=== PATIENT | male | born 1945 | race Caucasian/White ===

== ENCOUNTER 2018-11-07 21:35 | Inpatient (IN) | payer MEDICARE, BC, OTHER ==
[~2018-11-07] VITALS: Ht 167.6 cm; Wt 82.7 kg
[2018-11-07 22:00] VITALS: BP 182/86
--- NOTE | 2018-11-07 22:00 | NUR ---
Patient arrived to floor via gurney. Walked with SBA to bed. No c/o pain. BP elevated, MD notified. MD to come see patient.
--- NOTE | 2018-11-07 23:21 | NUR ---
in room assessing pt. states okay to use IV placed at and to continue NS @ 100. Will make NPO @ midnight to prep for possible surgery after Dr. Mayers assesses pt.
[2018-11-07 23:50] LABS: INR 1.1 INR; PARTIAL THROMBOPLASTIN TIME 31 SECONDS (22-32)
[2018-11-08] VITALS: BP 193/84
--- NOTE | 2018-11-08 | NUR ---
Patient states he takes lipitor 10 mg and a blood pressure medication @ 100mg at night. He is unable to recall the name of the medication. He states his has access to the medication but she would be asleep at this time.
[2018-11-08] MEDS: normal saline 1000ml 1,000 ML IV SCH ×3 (00:09→20:00)
[2018-11-08] MEDS ORDERED: potassium Cl 40MEQ/NS 500ml 500 ML IV PRN ×2 (00:10)
[2018-11-08] MEDS ORDERED: HYDROcodone/acetaminophen 5mg/325mg tablet PO PRN (00:10)
[2018-11-08] MEDS ORDERED: magnesium Cl slow-release 64mg tablet PO PRN (00:10)
[2018-11-08] MEDS ORDERED: magnesium 4gm in 100ml NS 100 ML IV PRN (00:10)
[2018-11-08] MEDS ORDERED: acetaminophen 325mg tablet PO PRN ×2 (00:10)
[2018-11-08] MEDS ORDERED: potassium Cl 20 mEq SR tablet PO PRN ×2 (00:10)
[2018-11-08] MEDS ORDERED: mag hydrox/Alum hydrox/simeth 30ml oral suspension PO PRN (00:10)
[2018-11-08] MEDS ORDERED: magnesium 2GM in 50ml NS 50 ML IV PRN (00:10)
[2018-11-08] MEDS ORDERED: magnesium hydroxide 30ml (MOM) UD suspension PO PRN (00:10)
[2018-11-08 01:39] VITALS: BP 156/99
[2018-11-08] MEDS ORDERED: ATOR10TA PO (01:54)
[2018-11-08 05:38] LABS: BASOPHILS % (AUTO) 0.2 % (0-1); EOSINOPHILS # (AUTO) 0.1 X10'3 (0-0.9); EOSINOPHILS % (AUTO) 0.7 % (0-6); HEMATOCRIT 34.7 % (42.0-52.0); LYMPHOCYTES # (AUTO) 1.1 X10'3 (1.1-4.8); LYMPHOCYTES % (AUTO) 7.8 % (21-51); MEAN CORPUSCULAR HEMOGLOBIN 31.8 PG (27.0-31.0); MEAN CORPUSCULAR HGB CONC 34.6 g/dL (33.0-36.5); MEAN CORPUSCULAR VOLUME 91.8 FL (78-98); MONOCYTES # (AUTO) 0.9 X10'3 (0-0.9); MONOCYTES % (AUTO) 6.8 % (2-12); NEUTROPHILS # (AUTO) 11.6 X10'3 (1.8-7.7); NEUTROPHILS % (AUTO) 84.5 % (42-75); PLATELET COUNT 213 X10'3 (140-440); RED BLOOD COUNT 3.78 X10'6 (4.70-6.10); RED CELL DISTRIBUTION WIDTH 12.5 % (11.5-14.5); WHITE BLOOD COUNT 13.7 X10'3 (4.5-11.0)
[2018-11-08 06:16] LABS: ALANINE AMINOTRANSFERASE 19 U/L (12-78); ALBUMIN 2.6 G/DL (3.4-5.0); ALBUMIN/GLOBULIN RATIO 0.8 (1.1-1.5); ALKALINE PHOSPHATASE 67 IU/L (46-116); ANION GAP 8 (8-16); ASPARTATE AMINO TRANSFERASE 14 U/L (10-37); BLOOD UREA NITROGEN 10 MG/DL (7-18); BUN/CREATININE RATIO 10.9 (5.4-32.0); CALCIUM 7.9 MG/DL (8.5-10.1); CHLORIDE 98 MMOL/L (99-107); CREATININE 0.92 MG/DL (0.60-1.10); GLUCOSE 104 MG/DL (70-104); POTASSIUM 3.8 MMOL/L (3.5-5.1); SODIUM 131 MMOL/L (135-145); TOTAL CARBON DIOXIDE 24.8 MMOL/L (24-32); TOTAL PROTEIN 5.8 G/DL (6.4-8.2); eGFR 81 ML/MIN
--- NOTE | 2018-11-08 06:50 | NUR ---
Problems reprioritized. Patient report given, questions answered & plan of care reviewed with GRACIELA Ordoñez.
[2018-11-08] MEDS: K and/or MAG REPLACEMENT MC SCH (08:00)
--- NOTE | 2018-11-08 08:32 | NUR ---
PAGER ID: [phone] MESSAGE: [phone] DIDIER MCCORMACK PT. HAVEING 03/02 ABD PAIN WITH NO RELIEF. NPO. MAY WE HAVE AN ORDER FOR IV PAIN MEDICATION PLEASE? MARGARITA OWENS [phone]
[2018-11-08] MEDS ORDERED: morphine 2 MG/ML inj. syringe IV PRN (08:45)
[2018-11-08] MEDS: HYDROcodone/acetaminophen 10/325mg tab PO PRN (08:53)
[2018-11-08] MEDS: metroNIDAZOLE-Flagyl 500mg/NS 100 ML IV SCH ×3 (08:53→23:53)
[2018-11-08 10:30] VITALS: BP 206/85
[2018-11-08] MEDS: ondansetron/PF 4mg/2ml inj IV PRN ×2 (11:53→22:56)
[2018-11-08 12:00] VITALS: BP 176/84
[2018-11-08] MEDS: morphine 4 MG/ML inj SYRINge IV PRN ×2 (12:34→16:36)
[2018-11-08] MEDS: ciprofloxacin lact 400MG/200ML 200 ML IV SCH ×2 (12:55→20:00)
[2018-11-08] MEDS ORDERED: losartan 25mg tablet PO SCH (14:20)
[2018-11-08] MEDS ORDERED: DORZ10DR18 EACHEYE (14:36)
[2018-11-08] MEDS ORDERED: BRIM5DRO16 EACHEYE (14:36)
[2018-11-08] MEDS ORDERED: LOSA100T3 PO (14:36)
--- NOTE | 2018-11-08 14:46 | NUR ---
PAGER ID: [phone] MESSAGE: [id number] DIDIER KSENIA PLEASE ADDRESS MED REC. THANK YOU! MARGARITA OWENS [phone]
[2018-11-08] MEDS ORDERED: brimonidine 0.2% 5 ML ophthalmic drops EACHEYE SCH (16:00)
--- NOTE | 2018-11-08 18:30 | NUR ---
Patient in room [facility]. I have received report from Smita OWENS and had the opportunity to ask questions and assume patient care.
--- NOTE | 2018-11-08 18:45 | NUR ---
Patient in room [facility]. I have received report from GRACIELA Ordoñez and had the opportunity to ask questions and assume patient care with GRACIELA Kohli Addendum: 11/09/18 at 0101 by Teri Ceron RN Amended: Links added.
[2018-11-08 19:00] VITALS: BP 187/99
--- NOTE | 2018-11-08 19:00 | NUR ---
Called Dr Hanson to inform him of Blood pressure 187/99, resumed home medication Larsartin, and I administerd it to patient Addendum: 11/09/18 at 0148 by Seun Stewart RN Amended: Links added.
--- NOTE | 2018-11-08 19:08 | NUR ---
Pt. is in his room comfortably resting. gave report to Seun OWENS and Cielo OWENS
[2018-11-08] MEDS ORDERED: losartan 50mg tablet PO ONE (19:45)
[2018-11-08] MEDS ORDERED: mineral oil 133ml enema RC PRN (19:50)
[2018-11-08] MEDS ORDERED: timolol 0.5% ophthalmic solution 5ml bottle EACHEYE SCH (20:00)
[2018-11-08] MEDS: HYDROmorphone 1 mg/ml syringe IV PRN ×2 (20:01→23:53)
[2018-11-08] MEDS: lactobacillus rhamnosus 10,000 MMU CELLS/CAPSULE PO SCH (20:02)
[2018-11-08] MEDS ORDERED: temazepam 15mg capsule PO PRN (21:00)
[2018-11-08] MEDS: timolol 0.5% ophthalmic solution 5ml bottle EACHEYE SCH (22:55)
[2018-11-08] MEDS: dorzolamide 2% ophthalmic drops 10ml EACHEYE SCH (22:55)
[2018-11-08] MEDS: brimonidine 0.2% 5 ML ophthalmic drops EACHEYE SCH (22:55)
[2018-11-08] MEDS: atorvastatin 10mg tablet PO SCH (22:56)
[2018-11-08 23:00] VITALS: BP 204/104
--- NOTE | 2018-11-08 23:00 | NUR ---
Checked patients blood pressure prior to giving Hydralizine. Gave hydralizine given and blood pressure re checked 10 mins later it was 196/79. Addendum: 11/09/18 at 0156 by Seun Stewart RN Amended: Links added.
[2018-11-08] MEDS: hydrALAZINE 20mg/ml inj. IV PRN (23:52)
[2018-11-09] VITALS (7 sets, daily range): BP systolic 131–259; BP diastolic 78–137
--- NOTE | 2018-11-09 01:39 | NUR ---
Patient states; that he only passed gas this morning. Addendum: 11/09/18 at 0142 by Seun Stewart RN Amended: Links added.
--- NOTE | 2018-11-09 01:50 | NUR ---
Paged Dr Hanson regarding BP of 206/85, Dr irving Hydralizine 0.5ml every 6 hrs PRN for high blood pressure Addendum: 11/09/18 at 0152 by Seun Stewart RN Amended: Links added.
--- NOTE | 2018-11-09 02:38 | NUR ---
Agree with nursing assessment. Addendum: 11/09/18 at 0238 by Teri Ceron RN Amended: Links added.
[2018-11-09 04:44] LABS: BASOPHILS % (AUTO) 0.4 % (0-1); EOSINOPHILS % (AUTO) 0.1 % (0-6); HEMATOCRIT 41.4 % (42.0-52.0); LYMPHOCYTES # (AUTO) 0.7 X10'3 (1.1-4.8); LYMPHOCYTES % (AUTO) 5.2 % (21-51); MEAN CORPUSCULAR HEMOGLOBIN 31.4 PG (27.0-31.0); MEAN CORPUSCULAR HGB CONC 33.8 g/dL (33.0-36.5); MEAN CORPUSCULAR VOLUME 92.9 FL (78-98); MEAN PLATELET VOLUME 7.5 FL (7.4-10.4); MONOCYTES # (AUTO) 0.8 X10'3 (0-0.9); MONOCYTES % (AUTO) 5.6 % (2-12); NEUTROPHILS # (AUTO) 11.9 X10'3 (1.8-7.7); NEUTROPHILS % (AUTO) 88.7 % (42-75); PLATELET COUNT 264 X10'3 (140-440); RED BLOOD COUNT 4.46 X10'6 (4.70-6.10); RED CELL DISTRIBUTION WIDTH 12.7 % (11.5-14.5); WHITE BLOOD COUNT 13.4 X10'3 (4.5-11.0)
[2018-11-09 05:06] LABS: ALANINE AMINOTRANSFERASE 17 U/L (12-78); ALBUMIN 2.4 G/DL (3.4-5.0); ALBUMIN/GLOBULIN RATIO 0.6 (1.1-1.5); ALKALINE PHOSPHATASE 62 IU/L (46-116); ANION GAP 5 (8-16); ASPARTATE AMINO TRANSFERASE 14 U/L (10-37); BILIRUBIN,TOTAL 0.8 MG/DL (0.1-1.0); BLOOD UREA NITROGEN 13 MG/DL (7-18); BUN/CREATININE RATIO 14.8 (5.4-32.0); CALCIUM 8.3 MG/DL (8.5-10.1); CHLORIDE 99 MMOL/L (99-107); CHOL/HDL RATIO 2.3 (0.00-4.99); CHOLESTEROL 128 MG/DL (0-200); CREATININE 0.88 MG/DL (0.60-1.10); GLUCOSE 144 MG/DL (70-104); HDL CHOLESTEROL 55 MG/DL (35-60); LDL CHOLESTEROL 62 MG/DL (50-100); MAGNESIUM 1.7 MG/DL (1.5-2.4); POTASSIUM 4.4 MMOL/L (3.5-5.1); SODIUM 131 MMOL/L (135-145); TOTAL CARBON DIOXIDE 27.5 MMOL/L (24-32); TOTAL PROTEIN 6.2 G/DL (6.4-8.2); TRIGLYCERIDES 48 MG/DL (20-135); eGFR 85 ML/MIN
[2018-11-09] MEDS: ondansetron/PF 4mg/2ml inj IV PRN (05:13)
--- NOTE | 2018-11-09 06:10 | NUR ---
Patient in room [facility]. I have received report from GRACIELA Kohli and had the opportunity to ask questions and assume patient care.
--- NOTE | 2018-11-09 06:37 | NUR ---
Problems reprioritized. Patient report given, questions answered & plan of care reviewed with GRACIELA Fisher. Addendum: 11/09/18 at 0638 by Teri Ceron RN Amended: Links added.
[2018-11-09] MEDS: normal saline 1000ml 1,000 ML IV SCH ×3 (07:35→19:28)
[2018-11-09] MEDS: timolol 0.5% ophthalmic solution 5ml bottle EACHEYE SCH ×2 (07:36→19:45)
[2018-11-09] MEDS: dorzolamide 2% ophthalmic drops 10ml EACHEYE SCH ×2 (07:36→19:44)
[2018-11-09] MEDS: brimonidine 0.2% 5 ML ophthalmic drops EACHEYE SCH ×2 (07:37→19:46)
[2018-11-09] MEDS: metroNIDAZOLE-Flagyl 500mg/NS 100 ML IV SCH ×3 (07:38→23:44)
[2018-11-09] MEDS: enoxaparin 40mg/0.4ml syringe SUBCUT SCH (07:38)
[2018-11-09] MEDS: losartan 50mg tablet PO SCH (07:38)
[2018-11-09] MEDS: lactobacillus rhamnosus 10,000 MMU CELLS/CAPSULE PO SCH ×2 (07:38→19:48)
[2018-11-09] MEDS: K and/or MAG REPLACEMENT MC SCH (07:39)
[2018-11-09] MEDS: hydrALAZINE 20mg/ml inj. IV PRN ×2 (10:07→16:29)
[2018-11-09] MEDS: ciprofloxacin lact 400MG/200ML 200 ML IV SCH ×2 (10:11→19:42)
[2018-11-09] MEDS: proCHLORperazine 10 MG/2 ml inj IV PRN ×2 (10:48→17:27)
--- NOTE | 2018-11-09 18:15 | NUR ---
Problems reprioritized. Patient report given, questions answered & plan of care reviewed with GRACIELA Blair.
--- NOTE | 2018-11-09 18:17 | NUR ---
Patient in room [facility]. I have received report from SHARONA OWENS and had the opportunity to ask questions and assume patient care.
[2018-11-09] MEDS: HYDROmorphone 1 mg/ml syringe IV PRN (19:35)
[2018-11-09] MEDS ORDERED: dorzolamide/timolol (Cosopt) ophthalmic drops 10ml bottle EACHEYE SCH (20:00)
[2018-11-09] MEDS: atorvastatin 10mg tablet PO SCH (21:36)
[2018-11-09] MEDS: hydrALAZINE 20mg/ml inj. IV SCH (21:37)
[2018-11-10] VITALS: BP 184/92
[2018-11-10] MEDS: HYDROmorphone 1 mg/ml syringe IV PRN ×2 (00:25→11:41)
[2018-11-10] MEDS: proCHLORperazine 10 MG/2 ml inj IV PRN ×3 (00:30→22:39)
[2018-11-10 02:00] VITALS: BP 158/81
[2018-11-10] MEDS: hydrALAZINE 20mg/ml inj. IV SCH ×4 (02:14→20:06)
[2018-11-10 04:14] LABS: BASOPHILS % (AUTO) 0.4 % (0-1); EOSINOPHILS % (AUTO) 0.2 % (0-6); HEMATOCRIT 40.2 % (42.0-52.0); HEMOGLOBIN 13.5 g/dl (14.0-17.9); LYMPHOCYTES # (AUTO) 1.1 X10'3 (1.1-4.8); LYMPHOCYTES % (AUTO) 9.6 % (21-51); MEAN CORPUSCULAR HEMOGLOBIN 31.4 PG (27.0-31.0); MEAN CORPUSCULAR HGB CONC 33.7 g/dL (33.0-36.5); MEAN CORPUSCULAR VOLUME 93.2 FL (78-98); MEAN PLATELET VOLUME 7.4 FL (7.4-10.4); MONOCYTES # (AUTO) 0.9 X10'3 (0-0.9); MONOCYTES % (AUTO) 7.6 % (2-12); NEUTROPHILS # (AUTO) 9.4 X10'3 (1.8-7.7); NEUTROPHILS % (AUTO) 82.2 % (42-75); PLATELET COUNT 333 X10'3 (140-440); RED BLOOD COUNT 4.32 X10'6 (4.70-6.10); RED CELL DISTRIBUTION WIDTH 12.7 % (11.5-14.5); WHITE BLOOD COUNT 11.4 X10'3 (4.5-11.0)
[2018-11-10 04:22] LABS: ALANINE AMINOTRANSFERASE 14 U/L (12-78); ALBUMIN 2.2 G/DL (3.4-5.0); ALBUMIN/GLOBULIN RATIO 0.6 (1.1-1.5); ALKALINE PHOSPHATASE 54 IU/L (46-116); ANION GAP 6 (8-16); ASPARTATE AMINO TRANSFERASE 14 U/L (10-37); BILIRUBIN,TOTAL 0.6 MG/DL (0.1-1.0); BLOOD UREA NITROGEN 20 MG/DL (7-18); BUN/CREATININE RATIO 20.4 (5.4-32.0); CALCIUM 8.5 MG/DL (8.5-10.1); CHLORIDE 101 MMOL/L (99-107); CREATININE 0.98 MG/DL (0.60-1.10); GLUCOSE 138 MG/DL (70-104); MAGNESIUM 1.9 MG/DL (1.5-2.4); PHOSPHORUS 2.7 MG/DL (2.3-4.5); POTASSIUM 3.9 MMOL/L (3.5-5.1); SODIUM 134 MMOL/L (135-145); TOTAL CARBON DIOXIDE 26.8 MMOL/L (24-32); TOTAL PROTEIN 5.7 G/DL (6.4-8.2); eGFR 75 ML/MIN
--- NOTE | 2018-11-10 06:15 | NUR ---
Patient in room [facility]. I have received report from Johnnie OWENS and had the opportunity to ask questions and assume patient care.
--- NOTE | 2018-11-10 06:31 | NUR ---
Problems reprioritized. Patient report given, questions answered & plan of care reviewed with HYACINTH OWENS.
[2018-11-10 07:15] VITALS: BP 194/83
[2018-11-10] MEDS: K and/or MAG REPLACEMENT MC SCH (07:49)
[2018-11-10] MEDS: metroNIDAZOLE-Flagyl 500mg/NS 100 ML IV SCH ×2 (07:52→15:27)
[2018-11-10] MEDS: normal saline 1000ml 1,000 ML IV SCH ×2 (07:52→22:42)
[2018-11-10] MEDS: lactobacillus rhamnosus 10,000 MMU CELLS/CAPSULE PO SCH ×2 (07:53→20:05)
[2018-11-10] MEDS: timolol 0.5% ophthalmic solution 5ml bottle EACHEYE SCH ×2 (07:53→20:01)
[2018-11-10] MEDS: losartan 50mg tablet PO SCH (07:53)
[2018-11-10] MEDS: enoxaparin 40mg/0.4ml syringe SUBCUT SCH (07:53)
[2018-11-10] MEDS: dorzolamide 2% ophthalmic drops 10ml EACHEYE SCH ×2 (07:53→20:00)
[2018-11-10] MEDS: brimonidine 0.2% 5 ML ophthalmic drops EACHEYE SCH ×2 (07:54→20:01)
[2018-11-10] MEDS ORDERED: LOSARTAN POTASSIUM PO SCH (08:00)
[2018-11-10] MEDS ORDERED: brimonidine 0.2% 5 ML ophthalmic drops EACHEYE SCH (08:00)
[2018-11-10] MEDS ORDERED: losartan 50mg tablet PO SCH (08:00)
--- NOTE | 2018-11-10 08:11 | NUR ---
Dr. Jerome aware of high BP 194/83. stated to recheck BP in 1 hr. Will continue to monitor.
[2018-11-10] MEDS: ciprofloxacin lact 400MG/200ML 200 ML IV SCH ×2 (09:06→20:00)
[2018-11-10] MEDS: metoprolol tartrate 25mg tablet PO SCH ×2 (09:07→20:05)
[2018-11-10 10:00] VITALS: BP 159/77
[2018-11-10 11:46] VITALS: BP 169/81
[2018-11-10] MEDS: HYDROcodone/acetaminophen 10/325mg tab PO PRN (17:58)
--- NOTE | 2018-11-10 18:28 | NUR ---
Problems reprioritized. Patient report given, questions answered & plan of care reviewed with Johnnie OWENS.
--- NOTE | 2018-11-10 18:29 | NUR ---
Patient in room [facility]. I have received report from HYACINTH OWENS and had the opportunity to ask questions and assume patient care.
[2018-11-10 19:00] VITALS: BP 204/97
[2018-11-10] MEDS: atorvastatin 10mg tablet PO SCH (22:39)
[2018-11-11] VITALS (7 sets, daily range): BP systolic 158–205; BP diastolic 73–95
[2018-11-11] MEDS: metroNIDAZOLE-Flagyl 500mg/NS 100 ML IV SCH ×4 (00:04→23:09)
[2018-11-11] MEDS: HYDROmorphone 1 mg/ml syringe IV PRN ×3 (00:05→18:28)
[2018-11-11] MEDS: ondansetron/PF 4mg/2ml inj IV PRN ×2 (00:11→09:04)
[2018-11-11] MEDS: hydrALAZINE 20mg/ml inj. IV SCH ×4 (02:07→20:17)
--- NOTE | 2018-11-11 03:30 | NUR ---
ET=846/ 79 , DR. MONSON NOTIFIED NEW ORDER RECEIVED.
[2018-11-11] MEDS ORDERED: cloNIDine 0.1 mg tablet PO ONE (04:00)
[2018-11-11 04:33] LABS: BASOPHILS # (AUTO) 0.1 X10'3 (0-0.2); BASOPHILS % (AUTO) 0.9 % (0-1); EOSINOPHILS # (AUTO) 0.1 X10'3 (0-0.9); EOSINOPHILS % (AUTO) 1.3 % (0-6); HEMATOCRIT 39.3 % (42.0-52.0); HEMOGLOBIN 13.2 g/dl (14.0-17.9); LYMPHOCYTES # (AUTO) 1.5 X10'3 (1.1-4.8); LYMPHOCYTES % (AUTO) 17.3 % (21-51); MEAN CORPUSCULAR HEMOGLOBIN 31.5 PG (27.0-31.0); MEAN CORPUSCULAR HGB CONC 33.7 g/dL (33.0-36.5); MEAN CORPUSCULAR VOLUME 93.4 FL (78-98); MEAN PLATELET VOLUME 7.4 FL (7.4-10.4); MONOCYTES % (AUTO) 11.4 % (2-12); NEUTROPHILS # (AUTO) 6.1 X10'3 (1.8-7.7); NEUTROPHILS % (AUTO) 69.1 % (42-75); PLATELET COUNT 370 X10'3 (140-440); RED BLOOD COUNT 4.21 X10'6 (4.70-6.10); RED CELL DISTRIBUTION WIDTH 12.4 % (11.5-14.5); WHITE BLOOD COUNT 8.9 X10'3 (4.5-11.0)
[2018-11-11 04:52] LABS: ALANINE AMINOTRANSFERASE 17 U/L (12-78); ALBUMIN 2.4 G/DL (3.4-5.0); ALBUMIN/GLOBULIN RATIO 0.7 (1.1-1.5); ALKALINE PHOSPHATASE 52 IU/L (46-116); ANION GAP 6 (8-16); ASPARTATE AMINO TRANSFERASE 19 U/L (10-37); BILIRUBIN,TOTAL 0.5 MG/DL (0.1-1.0); BLOOD UREA NITROGEN 18 MG/DL (7-18); CALCIUM 8.6 MG/DL (8.5-10.1); CHLORIDE 101 MMOL/L (99-107); CREATININE 0.82 MG/DL (0.60-1.10); GLUCOSE 126 MG/DL (70-104); MAGNESIUM 1.8 MG/DL (1.5-2.4); PHOSPHORUS 3.2 MG/DL (2.3-4.5); POTASSIUM 3.7 MMOL/L (3.5-5.1); SODIUM 133 MMOL/L (135-145); TOTAL CARBON DIOXIDE 26.3 MMOL/L (24-32); TOTAL PROTEIN 5.8 G/DL (6.4-8.2); eGFR > 90 ML/MIN
--- NOTE | 2018-11-11 05:45 | NUR ---
BP= 186/86, PAGED TO DR. MONSON.
--- NOTE | 2018-11-11 06:51 | NUR ---
Problems reprioritized. Patient report given, questions answered & plan of care reviewed with JOSE ARMANDO OWENS.
[2018-11-11] MEDS: K and/or MAG REPLACEMENT MC SCH (08:00)
[2018-11-11] MEDS ORDERED: metoprolol tartrate 25mg tablet PO ONE (08:20)
[2018-11-11] MEDS: losartan 50mg tablet PO SCH (08:29)
[2018-11-11] MEDS: lactobacillus rhamnosus 10,000 MMU CELLS/CAPSULE PO SCH ×2 (08:29→20:16)
[2018-11-11] MEDS: timolol 0.5% ophthalmic solution 5ml bottle EACHEYE SCH ×2 (08:30→20:09)
[2018-11-11] MEDS: dorzolamide 2% ophthalmic drops 10ml EACHEYE SCH ×2 (08:30→20:14)
[2018-11-11] MEDS: brimonidine 0.2% 5 ML ophthalmic drops EACHEYE SCH ×2 (08:30→20:20)
[2018-11-11] MEDS: enoxaparin 40mg/0.4ml syringe SUBCUT SCH (08:33)
[2018-11-11] MEDS: ciprofloxacin lact 400MG/200ML 200 ML IV SCH ×2 (10:23→20:11)
[2018-11-11] MEDS: normal saline 1000ml 1,000 ML IV SCH (10:24)
[2018-11-11] MEDS: amLODIPine 5mg tablet PO SCH (16:03)
--- NOTE | 2018-11-11 18:10 | NUR ---
Patient in room [facility]. I have received report from Renetta OWENS and had the opportunity to ask questions and assume patient care.
--- NOTE | 2018-11-11 18:13 | NUR ---
Problems reprioritized. Patient report given, questions answered & plan of care reviewed with jahaira stone.
[2018-11-11] MEDS: atorvastatin 10mg tablet PO SCH (20:16)
[2018-11-11] MEDS: metoprolol tartrate 50mg tablet PO SCH (20:17)
[2018-11-12] VITALS (7 sets, daily range): BP systolic 151–191; BP diastolic 72–93
[2018-11-12] MEDS: ondansetron/PF 4mg/2ml inj IV PRN ×2 (01:54→13:50)
[2018-11-12] MEDS: hydrALAZINE 20mg/ml inj. IV SCH ×3 (01:57→14:05)
[2018-11-12] MEDS: HYDROmorphone 1 mg/ml syringe IV PRN (03:25)
[2018-11-12 04:23] LABS: BASOPHILS # (AUTO) 0.1 X10'3 (0-0.2); BASOPHILS % (AUTO) 0.8 % (0-1); EOSINOPHILS # (AUTO) 0.3 X10'3 (0-0.9); HEMATOCRIT 36.1 % (42.0-52.0); HEMOGLOBIN 12.2 g/dl (14.0-17.9); LYMPHOCYTES # (AUTO) 1.1 X10'3 (1.1-4.8); LYMPHOCYTES % (AUTO) 15.5 % (21-51); MEAN CORPUSCULAR HEMOGLOBIN 31.4 PG (27.0-31.0); MEAN CORPUSCULAR HGB CONC 33.9 g/dL (33.0-36.5); MEAN CORPUSCULAR VOLUME 92.7 FL (78-98); MEAN PLATELET VOLUME 7.5 FL (7.4-10.4); MONOCYTES # (AUTO) 0.9 X10'3 (0-0.9); NEUTROPHILS # (AUTO) 4.8 X10'3 (1.8-7.7); NEUTROPHILS % (AUTO) 67.7 % (42-75); PLATELET COUNT 324 X10'3 (140-440); RED BLOOD COUNT 3.89 X10'6 (4.70-6.10); RED CELL DISTRIBUTION WIDTH 12.6 % (11.5-14.5); WHITE BLOOD COUNT 7.1 X10'3 (4.5-11.0)
[2018-11-12 04:35] LABS: ALANINE AMINOTRANSFERASE 30 U/L (12-78); ALBUMIN 2.2 G/DL (3.4-5.0); ALBUMIN/GLOBULIN RATIO 0.7 (1.1-1.5); ALKALINE PHOSPHATASE 57 IU/L (46-116); ANION GAP 8 (8-16); ASPARTATE AMINO TRANSFERASE 45 U/L (10-37); BILIRUBIN,TOTAL 0.6 MG/DL (0.1-1.0); BLOOD UREA NITROGEN 16 MG/DL (7-18); BUN/CREATININE RATIO 21.1 (5.4-32.0); CALCIUM 8.2 MG/DL (8.5-10.1); CHLORIDE 100 MMOL/L (99-107); CREATININE 0.76 MG/DL (0.60-1.10); GLUCOSE 110 MG/DL (70-104); MAGNESIUM 1.7 MG/DL (1.5-2.4); PHOSPHORUS 3.1 MG/DL (2.3-4.5); POTASSIUM 3.6 MMOL/L (3.5-5.1); SODIUM 133 MMOL/L (135-145); TOTAL PROTEIN 5.2 G/DL (6.4-8.2); eGFR > 90 ML/MIN
--- NOTE | 2018-11-12 06:30 | NUR ---
Problems reprioritized. Patient report given, questions answered & plan of care reviewed with Suzy OWENS.
[2018-11-12] MEDS: ciprofloxacin lact 400MG/200ML 200 ML IV SCH (07:32)
[2018-11-12] MEDS: amLODIPine 5mg tablet PO SCH (07:32)
[2018-11-12] MEDS: losartan 50mg tablet PO SCH (07:32)
[2018-11-12] MEDS: metoprolol tartrate 50mg tablet PO SCH ×2 (07:33→20:33)
[2018-11-12] MEDS: lactobacillus rhamnosus 10,000 MMU CELLS/CAPSULE PO SCH ×2 (07:33→20:33)
[2018-11-12] MEDS: brimonidine 0.2% 5 ML ophthalmic drops EACHEYE SCH ×2 (07:34→20:36)
[2018-11-12] MEDS: timolol 0.5% ophthalmic solution 5ml bottle EACHEYE SCH ×2 (07:34→20:36)
[2018-11-12] MEDS: dorzolamide 2% ophthalmic drops 10ml EACHEYE SCH ×2 (07:34→20:36)
[2018-11-12] MEDS: enoxaparin 40mg/0.4ml syringe SUBCUT SCH (07:35)
[2018-11-12] MEDS: K and/or MAG REPLACEMENT MC SCH (08:00)
[2018-11-12] MEDS: metroNIDAZOLE-Flagyl 500mg/NS 100 ML IV SCH ×2 (09:48→17:32)
--- NOTE | 2018-11-12 14:40 | NUR ---
Initial: Pt admit w/ diverticulitis and microperforation receiving IV abx hoping to avoid OR per MD note. Pt advanced to clear liquids w/ 0-25% avg meals. Abdominal pain and distention improving but still present following first BM 11/11 per pt and EMR. Pt seen by RD for written/verbal diverticulitis diet ed w/ RD contact information provided. RD encouraged pt to contact RD if any further questions given new DX and no prior hx GI issues. Ensure clear TIDWM added for additional protein/kcal needs; MD and dietary notified. Will continue to monitor. Rec: 1. advance diet per MD to low-residue 2. ensure clear TIDWM while on clears 3. wt per rx Addendum: 11/12/18 at [address] Amended: Links added. Addendum: 11/12/18 at [address] F/u: Pt advanced to mechanical soft/low-residue diet; ONS change to ensure enlive TID since no longer on clears; dietary notified.
[2018-11-12] MEDS ORDERED: bisacodyl 10mg suppository rectal RC PRN (15:20)
--- NOTE | 2018-11-12 18:30 | NUR ---
Patient in room [facility]. I have received report from Suzy OWENS and had the opportunity to ask questions and assume patient care.
--- NOTE | 2018-11-12 20:00 | NUR ---
Patients PIV to RUE had just infiltrated prior to change shift. All IV medications to be converted to PO.
[2018-11-12] MEDS: atorvastatin 10mg tablet PO SCH (20:33)
[2018-11-12] MEDS: ciprofloxacin 250mg tablet PO SCH (20:34)
[2018-11-12] MEDS: docusate sod 100mg capsule PO SCH (20:34)
[2018-11-12] MEDS: hyDRALAzine 10mg tablet PO SCH (21:00)
[2018-11-12] MEDS: ondansetron 4mg rapidly disintigrating tab PO PRN (21:02)
[2018-11-12] MEDS: metroNIDAZOLE 500mg tablet PO SCH (23:24)
[2018-11-12] MEDS: HYDROmorphone 2mg tablet PO PRN (23:25)
[2018-11-13 01:43] VITALS: BP 168/86
[2018-11-13] MEDS: hyDRALAzine 10mg tablet PO SCH ×2 (01:45→08:00)
[2018-11-13 04:33] LABS: ALANINE AMINOTRANSFERASE 55 U/L (12-78); ALBUMIN 2.5 G/DL (3.4-5.0); ALBUMIN/GLOBULIN RATIO 0.8 (1.1-1.5); ALKALINE PHOSPHATASE 75 IU/L (46-116); ANION GAP 7 (8-16); ASPARTATE AMINO TRANSFERASE 68 U/L (10-37); BASOPHILS # (AUTO) 0.1 X10'3 (0-0.2); BASOPHILS % (AUTO) 0.8 % (0-1); BILIRUBIN,TOTAL 0.6 MG/DL (0.1-1.0); BLOOD UREA NITROGEN 12 MG/DL (7-18); BUN/CREATININE RATIO 15.4 (5.4-32.0); CALCIUM 7.9 MG/DL (8.5-10.1); CHLORIDE 96 MMOL/L (99-107); CREATININE 0.78 MG/DL (0.60-1.10); EOSINOPHILS # (AUTO) 0.3 X10'3 (0-0.9); EOSINOPHILS % (AUTO) 4.5 % (0-6); GLUCOSE 112 MG/DL (70-104); HEMATOCRIT 38.5 % (42.0-52.0); HEMOGLOBIN 13.1 g/dl (14.0-17.9); LYMPHOCYTES # (AUTO) 1.3 X10'3 (1.1-4.8); LYMPHOCYTES % (AUTO) 17.2 % (21-51); MAGNESIUM 1.6 MG/DL (1.5-2.4); MEAN CORPUSCULAR VOLUME 91.2 FL (78-98); MEAN PLATELET VOLUME 7.2 FL (7.4-10.4); MONOCYTES # (AUTO) 0.9 X10'3 (0-0.9); MONOCYTES % (AUTO) 11.8 % (2-12); NEUTROPHILS % (AUTO) 65.7 % (42-75); PHOSPHORUS 3.3 MG/DL (2.3-4.5); PLATELET COUNT 319 X10'3 (140-440); POTASSIUM 3.6 MMOL/L (3.5-5.1); RED BLOOD COUNT 4.22 X10'6 (4.70-6.10); RED CELL DISTRIBUTION WIDTH 12.8 % (11.5-14.5); SODIUM 130 MMOL/L (135-145); TOTAL CARBON DIOXIDE 26.8 MMOL/L (24-32); TOTAL PROTEIN 5.5 G/DL (6.4-8.2); WHITE BLOOD COUNT 7.6 X10'3 (4.5-11.0); eGFR > 90 ML/MIN
--- NOTE | 2018-11-13 06:20 | NUR ---
Problems reprioritized. Patient report given, questions answered & plan of care reviewed with Malissa OWENS.
[2018-11-13 07:00] VITALS: BP 183/87
--- NOTE | 2018-11-13 07:05 | NUR ---
Patient in room [facility]. I have received report from Cornelia OWENS and had the opportunity to ask questions and assume patient care.
[2018-11-13] MEDS: ondansetron 4mg rapidly disintigrating tab PO PRN (08:00)
[2018-11-13] MEDS: K and/or MAG REPLACEMENT MC SCH (08:00)
[2018-11-13] MEDS: HYDROmorphone 2mg tablet PO PRN (08:00)
[2018-11-13] MEDS: ciprofloxacin 250mg tablet PO SCH (08:01)
[2018-11-13] MEDS: lactobacillus rhamnosus 10,000 MMU CELLS/CAPSULE PO SCH (08:01)
[2018-11-13] MEDS: losartan 50mg tablet PO SCH (08:01)
[2018-11-13 08:02] VITALS: BP_SYST 183
[2018-11-13] MEDS: metroNIDAZOLE 500mg tablet PO SCH (08:02)
[2018-11-13] MEDS: metoprolol tartrate 50mg tablet PO SCH (08:02)
[2018-11-13] MEDS: docusate sod 100mg capsule PO SCH (08:02)
[2018-11-13] MEDS: amLODIPine 5mg tablet PO SCH (08:02)
[2018-11-13] MEDS: timolol 0.5% ophthalmic solution 5ml bottle EACHEYE SCH (08:03)
[2018-11-13] MEDS: brimonidine 0.2% 5 ML ophthalmic drops EACHEYE SCH (08:03)
[2018-11-13] MEDS: dorzolamide 2% ophthalmic drops 10ml EACHEYE SCH (08:03)
[2018-11-13] MEDS: enoxaparin 40mg/0.4ml syringe SUBCUT SCH (08:05)
[2018-11-13] MEDS ORDERED: CIPR-230 PO (10:12)
[2018-11-13] MEDS ORDERED: NOR5T PO (10:12)
[2018-11-13] MEDS ORDERED: METR500T PO (10:12)
[2018-11-13] MEDS ORDERED: METO50TA16 PO (10:12)
--- NOTE | 2018-11-13 12:18 | NUR ---
Discharge instructions given to patient, patient verbalized understanding of all instructions made. Patient did not have a peripheral IV catheter this am. New prescriptions called in and [facility] pharmacy delivered meds at bedside. Patient's eye drops returned to patient. Patient awaiting for his for the ride home Addendum: 11/13/18 at 1357 by Malissa Martinez RN 12:35pm - came to picker / packer patient. Patient left the unit with his belongings
== END 2018-11-13 12:36 | disposition home or self-care (01) | DRG 392 ==
LOC: SUR 3N 21:52
PROVIDERS: ADMIT Family Medicine; ATTEND Family Medicine
DX: K57.20 Diverticulitis of large intestine with perforation and abscess without bleeding (principal); E87.1 Hypo-osmolality and hyponatremia; E87.6 Hypokalemia; I10 Essential (primary) hypertension; E78.5 Hyperlipidemia, unspecified; N40.0 Benign prostatic hyperplasia without lower urinary tract symptoms; Z96.611 Presence of right artificial shoulder joint; H40.9 Unspecified glaucoma; E86.0 Dehydration; D64.9 Anemia, unspecified
CPT/HCPCS: 36415; 71045; 80053; 80061; 83605; 83735; 84100; 84145; 85025; 85610; 85730; 87040; 87070; G0378; J0360; J0744; J0780; J1170; J1650; J2270; J2405; J3490; J7030